=== PATIENT | female | born 1985 | race Two or more races ===

== ENCOUNTER 2024-12-02 19:00 | Emergency (ER) | payer BC, SELFPAY ==
[2024-12-02 19:37] VITALS: BP 107/66; PULSE 79; RESP 20; TEMP 36.7; O2SAT 97
--- NOTE | 2024-12-02 19:38 | XR_ITS ---
Examination: CT chest, without intravenous contrast. CT abdomen, without intravenous contrast. CT pelvis, without intravenous contrast. 2-D sagittal and coronal reconstructions. 3-D reconstructions. Date and time of exam:December 02, 2024, 2051 hrs. Indications: Onset chest pain epigastric pain abdominal pain Sharp intermittent epigastric pain one year CTDI vol (mgy) 6.68 DLP (MGycm)478 Technique: Multiple CT images, 3.0 mm slice thickness, obtained chest, abdomen, pelvis, with the high-resolution 64 slice scanner.. Sagittal and coronal 2-D reconstructions are obtained. 3-D reconstructions Low dose protocols were performed. One or more of the following dose reduction techniques were used; automated exposure control, adjustment of the mA and/or KV according to patient size, use of iterative reconstruction technique. Findings: No thoracic aortic aneurysmal dilatation Pulmonary artery segments are not enlarged. No paratracheal tracheobronchial or bronchopulmonary adenopathy. No pneumonia, pulmonary edema or pleural disease 19 mm upper right lobe liver cyst Gastric mucosa appears significantly thickened, axial image 124 No liver or splenic lesion No gallstones No pancreatic mass or dilated pancreatic duct Normal adrenal glands Bilateral 1 to 4 mm renal calculi No hydronephrosis or ureteral calculi Normal appendix No bowel obstruction or diverticulitis Minimal thickening urinary bladder wall 4 mm Old fracture fragment off the anterior inferior margin L5 Anteverted uterus with mildly enlarged fundus L5-S1 4 mm central lumbar disc bulge contiguous with the right and left S1 nerve roots Impression: No mediastinal lymphadenopathy No pneumonia, pulmonary edema or pleural disease Gastric mucosa is thickened, consider gastritis, clinical correlation advised, consider upper GI series or endoscopy follow-up Bilateral nonobstructing renal calculi, no hydronephrosis or ureteral calculi Normal appendix No bowel obstruction diverticulitis or free air. Minimal urinary bladder wall thickening, consider cystitis L4-L5 4 mm central lumbar disc bulge contiguous with the right and left S1 nerve roots
--- NOTE | 2024-12-02 19:39 | EKG_ITS ---
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
[2024-12-02 19:59] LABS: Basophils # (Auto) 0.1 Thou/mm3 (0.0-0.2); Basophils % (Auto) 1 % (0-2.5); Eosinophils # (Auto) 0.2 Thou/mm3 (0.0-0.5); Eosinophils % (Auto) 3 % (0-10); Hematocrit 30.2 % (36.0-46.0); Hemoglobin 9.1 g/dL (12.0-16.0); Immature Granulocytes Auto 0.02 Thou/mm3 (0.00-0.00); Lymphocytes # (Auto) 3.0 Thou/mm3 (1.0-4.8); Lymphocytes % (Auto) 39 % (10-50); Mean Corpuscular HGB Conc 30.1 g/dl (31.0-37.0); Mean Corpuscular Hemoglobin 21.8 pg (25.0-35.0); Mean Corpuscular Volume 72 fL (80-100); Monocytes # (Auto) 0.7 Thou/mm3 (0.0-0.8); Monocytes % (Auto) 9 % (0-12); Neutrophils # (Auto) 3.7 Thou/mm3 (1.8-7.7); Neutrophils % (Auto) 47 % (37-80); Nucleated Red Blood Cell # 0.00 Thou/mm3 (0.00-0.00); Nucleated Red Blood Cell % 0 /100 WBC (0); Platelet Count 314 Thou/mm3 (140-440); RDW Standard Deviation 44.9 fL (36.4-46.3); Red Blood Count 4.17 Miln/mm3 (4.00-5.20); White Blood Count 7.8 Thou/mm3 (3.6-11.0)
[2024-12-02 20:15] LABS: B-Type Natriuretic Peptide 31 pg/mL (0-100)
[2024-12-02 20:17] LABS: Alanine Aminotransferase 9 U/L (10-49); Albumin, Serum 4.6 gm/dL (3.5-5.0); Albumin/Globulin Ratio 1.7 (1.2-2.2); Alkaline Phosphatase 84 U/L (46-116); Anion Gap 10 (7-16); Aspartate Amino Transferase 19 U/L (0-34); BUN/Creatinine Ratio 15 Ratio (12-20); Bilirubin,Total 0.6 mg/dL (0.3-1.2); Blood Urea Nitrogen 9 mg/dL (9-23); Calcium 9.4 mg/dL (8.3-10.6); Calcium (Corrected) 9.4 mg/dL (8.5-10.1); Carbon Dioxide 21.9 mMol/L (20.0-31.0); Chloride 109 mMol/L (98-107); Creatinine (Component) 0.6 mg/dL (0.6-1.3); Globulin 2.7 gm/dL (2.3-3.5); Glucose 92 mg/dL (74-106); Osmolality,Calculated 279 (275-295); Potassium 3.6 mMol/L (3.4-5.1); Sodium 141 mMol/L (136-145); Total Protein 7.3 gm/dL (5.7-8.2); Troponin I < 0.020 ng/mL (0.0-0.045); eGFR > 60 See Note
[2024-12-02 20:25] LABS: Collection Type, Urine Clean Catch
[2024-12-02 20:38] LABS: HCG Qualitative,Urine Negative
[2024-12-02 20:42] LABS: Bacteria,Urine Rare; Bilirubin,Urine Negative (Negative); Blood,Urine Negative (Negative); Clarity,Urine Clear (Clear/Hazy); Color,Urine Lt-Yellow (Lt Yel-Yel); Glucose, Urine Negative (Negative); Ketones,Urine Negative (Negative); Leukocyte Esterase,Urine Negative (Negative); Nitrite,Urine Negative (Negative); PH,Urine 6.0 (5.0-7.0); Protein,Urine Negative (Neg - Trace); RBC,Urine 4 /hpf (0-3); Specific Gravity,Urine 1.021 (1.001-1.035); Squamous Epithelial Cell,Urine 1 /hpf (0-5); Urobilinogen,Urine Negative mg/dL (0.0-1.0); WBC,Urine 2 /hpf (0-5)
[2024-12-02 21:52] LABS: Amylase 114 U/L (30-118)
--- NOTE | 2024-12-02 22:14 | EDNOTE_ITS ---
ED Abdominal Pain RME/HPI General Chief Complaint: Abdominal Pain Stated complaint: EPIGASTRIC PAIN Time seen by provider: 12/02/24 19:06 Arrival date/time: 12/02/24 19:00 This is a case of 39-year-old female with no medical history came in in the emergency room due to abdominal pain mainly on the epigastric area radiating to her chest and lower back patient denies any shortness of breath denies any palpitation denies any numbness weakness tingling sensation or incontinence to urine or stool patient denies any nausea vomiting constipation no diarrhea or blood in stool persistence of the symptoms this patient decided to sought consult here in the emergency room Limitations: no limitations Related Data Previous Rx's ?Medication ?Instructions ?Recorded famotidine 20 mg tablet 20 mg PO BID #60 tabs hydrocodone 5 mg-acetaminophen 325 1 tab PO Q6H PRN pa in #12 tabs 12/02/24 mg tablet omeprazole 20 mg capsule,delayed 20 mg PO QDAY #30 cap s 12/02/24 release ondansetron HCl 4 mg tablet 4 mg PO Q8H PRN nausea and 12/02/24 vomiting #20 tabs Allergies Allergy/AdvReac Type Severity Reaction Status Date / Time NKA* Allergy Uncoded 12/02/24 19:02 Review of Systems Review of Systems Systems Reviewed: All systems reviewed, normal except as documented Constitutional Constitutional: Reports system reviewed and no additional complaints, except as documented and Reports as per HPI ENT Ears, Nose, Mouth, and Throat: Denies dysphagia and Denies odynophagia Cardiovascular Cardiovascular: Reports system reviewed and no additional complaints, except as documented, Reports chest pain, Denies dyspnea and Denies rapid heart rate Respiratory Respiratory: Reports system reviewed and no additional complaints, except as documented, Reports as per HPI and Denies dyspnea Gastrointestinal Gastrointestinal: Reports system reviewed and no additional complaints, except as documented, Reports as per HPI, Reports abdominal pain, Denies belching, Denies bloating, Denies change in bowel habits, Denies change in stool character, Denies coffee ground emesis, Denies constipation, Denies cramping, Denies diarrhea, Denies dyspepsia, Denies dysphagia, Denies early satiety, Denies excessive flatus, Denies fecal incontinence, Denies heartburn, Denies hematemesis, Denies hematochezia, Denies loose stools, Denies melena, Denies nausea, Denies odynophagia, Denies tenesmus and Denies vomiting Neurologic Neurologic: Reports system reviewed and no additional complaints, except as documented and Reports as per HPI Past Medical History Social History SMOKING STATUS: Never smoker ED Exam General Limitations: Present no limitations General appearance: Present alert, in no apparent distress and other (Is awake alert oriented not in distress nontoxic looking well-hydrated well-nourished) Head Head exam: Present atraumatic, normocephalic and normal inspection Eye Eye exam: Present normal appearance, PERRL and EOMI ENT ENT exam: Present normal exam, normal oropharynx and mucous membranes moist Neck Neck exam: Present normal inspection, full ROM and trachea midline Chest Chest inspection: Present normal inspection and symmetric chest wall rise; Absent tenderness Respiratory Respiratory exam: Present normal lung sounds bilaterally; Absent respiratory distress, wheezes, stridor, accessory muscle use or prolonged expiratory phase Cardiovascular Cardiovascular exam: Present regular rate, normal rhythm and normal heart sounds; Absent bradycardia, tachycardia, irregular rhythm, systolic murmur or diastolic murmur Abdominal Exam Abdominal exam: Present soft and normal bowel sounds; Absent distention, tenderness, guarding, rebound, rigidity, diminished bowel sounds, hyperactive bowel sounds, hypoactive bowel sounds, organomegaly, trauma, incision, psoas sign, obturator sign, heel tap sign, Dong's sign, Rovsing's sign, tenderness at McBurney's Point, ascites, pulsatile mass or hernia Extremities Exam Extremities exam: Present normal inspection and full ROM Back Exam Back exam: Present normal inspection and full ROM Neurological Exam Neurological exam: Present alert, oriented X3, CN II-XII intact, normal gait and reflexes normal; Absent motor sensory deficit Psychiatric Psychiatric exam: Present normal affect and normal mood Skin Skin exam: Present warm, dry, intact and normal color Course Quality Measures none Orders Category Date Time Status EKG (ED ONLY) *Do not use* NOW Care 12/02/24 19:[address] chest abdomen pelvis wo Stat Exams 12/02/24 19:38 Completed EKG (ED Only) Stat Exams 12/02/24 19:39 Draft Amylase Stat Lab 12/02/24 19:50 Completed BNP [B-Type Natriuretic Peptide] Stat Lab 12/02/24 19:50 Completed CBC Stat Lab 12/02/24 19:50 Completed Comprehensive Metabolic Panel Stat Lab 12/02/24 19:50 Completed HCG Qualitative,Urine Stat Lab 12/02/24 20:09 Completed Troponin I Stat Lab 12/02/24 19:50 Completed Urinalysis Stat Lab 12/02/24 20:09 Completed Famotidine [Pepcid] Med 12/02/24 22:08 Discontinued 40 mg PO X1 ONE HYDROcodone*/APAP 5/325 [Pritchett 5/325] Med 12/02/24 22:08 Discontinued 1 tab PO X1 ONE Lidocaine 2% Viscous [Xylocaine 2% Viscous] Med 12/02/24 22:08 Discontinued 15 ml PO X1 ONE Ondansetron Odt [Zofran Odt] Med 12/02/24 22:08 Discontinued 4 mg PO X1 ONE mg Hyd/Al Hyd/Gina Susp [Maalox Susp] Med 12/02/24 22:08 Discontinued 30 ml PO X1 ONE Vital Signs Vital signs: Vital Signs Temperature 98.0 F 12/02/24 19:37 Pulse Rate 79 12/02/24 19:37 Respiratory Rate 20 12/02/24 19:37 Blood Pressure 107/66 12/02/24 19:37 Pulse Oximetry (%) 97 12/02/24 19:37 Oxygen Delivery Method Room Air 12/02/24 19:37 Oxygen saturation is 97% in room air normal Abdominal Pain MDM MDM Narrative MDM Narrative:: This is a case of 39-year-old female with no medical history came in in the emergency room due to abdominal pain mainly on the epigastric area radiating to her chest and lower back patient denies any shortness of breath denies any palpitation denies any numbness weakness tingling sensation or incontinence to urine or stool patient denies any nausea vomiting constipation no diarrhea or blood in stool persistence of the symptoms this patient decided to sought consult here in the emergency room physical examination patient is awake alert oriented not in distress nontoxic looking vital signs stable BP stable nontachycardic nontachypneic nonhypoxic and afebrile lungs sound is clear no crackles no rales no retraction no stridor heart normal rate regular rhythm no murmur abdominal exam is benign nonsurgical no guarding no rebound no rigidity no tenderness back exam is also normal blood test showed no leukocytosis but with anemia of 9.1 patient is currently taking iron for anemia amylase is normal no electrolyte imbalance kidney and liver function is normal urinalysis is normal patient CT scan of chest abdomen pelvis showed bilateral nonobstructive renal calculi with gastric mucosal thickening suggestive of gastritis patient also have L4-L5 lumbar bulging disc EKG showed normal sinus rhythm at 79 negative troponin negative BNP at the time of exam the chest pain is not cardiac or pulmonary origin mainly patient is having gastritis or heartburn patient was given Pritchett for pain Zofran for vomiting GI cocktail after 30 minutes patient was reassessed patient condition markedly improved abdominal pain and chest pain was resolved patient will follow-up with PCP in 2 days for reevaluation and to be referred to 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 Patient verbalized no further complains explained diagnosis and answered patient question. Patient is comfortable with the proposed management plan including the need to follow up with his/her primary care physician and any specialist if applicable Discussed patient for any urgent condition or worsening sx, He/She needed to go to emergency room immediately or call 911. Patient acknowledge the responsibility to follow up as instructed and to monitor her/his symptoms. For any persistence of the symptoms for more than 3-5 days return precaution advised. Discussed the result of the test and was given printed discharge instruction Patient data External records reviewed:: [facility] previous records Clinical information provided by:: patient Social determinants that could affect healthcare access:: none Patient has the following chronic illnesses:: None How is presenting disease/condition affected by chronic disease/condition?: no chronic disease Evaluation data The following diagnostics were reviewed and interpreted by me:: lab results, radiology exam(s) and EKG tracing(s) Lab and/or radiology exams considered but not ordered:: Reviewed Interpretation Summary: Reviewed Medications / Prescriptions Medications or Prescriptions considered but not ordered:: Given Medication administrations:: Medication Administration History Discontinued Medications Hydrocodone Bitart/Acetaminophen (Hydrocodone/Apap 5/325 Tablet) 1 tab PO X1 ONE Stop: 12/02/24 22:09 Al Hydrox/Mg Hydrox/Simethicone (Mg Hyd/Al Hyd/Gina (Maalox Reg) Susp 30 Ml Udc) 30 ml PO X1 ONE Stop: 12/02/24 22:09 Famotidine (Famotidine 20 Mg Tablet) 40 mg PO X1 ONE Stop: 12/02/24 22:09 Lidocaine HCl (Lidocaine Viscous 2% 15 Ml Udc) 15 ml PO X1 ONE Stop: 12/02/24 22:09 Ondansetron HCl (Ondansetron Odt 4 Mg Tabrap) 4 mg PO X1 ONE; Protocol Stop: 12/02/24 22:09 Given Consultations Consultation(s) initiated? (list below): No Diagnosis Differential diagnosis abdominal pain: abdominal pain, acute appendicitis, calculus of kidney, diverticulitis, endometriosis, gastroenteritis, pancreatitis, small bowel obstruction and other (Gastritis) Most likely diagnosis given after review of the tests above:: Gastritis Admission Indicated Admission indicated?: not indicated Explain why admission is indicated or not indicated:: Not indicated Admission Request Was there a request for admission?: No Admission Attestation Admission request attestation: Not indicated Disposition Plan Disposition Plan: Discharge Discharge Attestation Discharge Attestation: The patient and all family members were given an opportunity to ask questions and understood the discharge instructions. Discharge instructions specifically effects, indications for sooner follow up or return to the emergency department, and the expected course of current diagnosis. Patient condition: Stable Discharge Plan Plan Patient Disposition: HOME (Self Care) Patient condition on transfer: Stable Prescriptions/Referrals Prescriptions/Med Rec: New ondansetron HCl 4 mg tablet 4 mg PO Q8H PRN (Reason: nausea and vomiting) Qty: 20 0RF hydrocodone-acetaminophen 5-325 mg tablet 1 tab PO Q6H MDD max 4 tabs per day PRN (Reason: pain) Qty: 12 0RF famotidine 20 mg tablet 20 mg PO BID Qty: 60 0RF omeprazole 20 mg capsule,delayed release(DR/EC) 20 mg PO QDAY Qty: 30 0RF Referrals: Rama Haddad MD [Primary Care Provider] - In 1 week Problem List Clinical Impression: Abdominal pain, Chest pain of unknown etiology, Gastritis, Nephrolithiasis, Bulging lumbar disc Patient/Caregiver Discharge Instructions Education Materials: Abdominal Pain, Kidney Stones Your Evaluation, Common Spine and Disk Problems, ED Chest Pain, Uncertain Cause, ED Gastritis (Adult) Additional Instructions: Follow-up with your primary care physician in 2 days for reevaluation and to be referred to supervisor cutting and sewing room for further evaluation and treatment of chest pain for possible echocardiogram stress test and Holter monitor he also need to be seen by the seat installer for your gastritis for possible EGD he also need to see a neurosurgeon for your bulging disks lumbar and pain management for poor control worsening symptoms or any emergent concern or recurrence of symptoms lyons ch as numbness weakness tingling sensation incontinence to urine or stool persistent abdominal pain and chest pain return to the emergency room immediately or call 911 take your medication as directed increase water intake keep hydrated Pedialyte Gatorade for hydration is advised avoid skipping of meals avoid fatty fried high cholesterol foods avoid spicy food avoid alcohol soda coffee is advised Print Language: Vincentian Stand Alone Forms: Shelby Award Info., Patient Portal Info Letter PA/CREDIT DIRECTOR Supervising Physician PA/CREDIT DIRECTOR Supervising Physician: Dr. Linda Owusu
[2024-12-02] MEDS: FAMOTIDINE 20 MG TABLET 40 MG PO (22:24)
[2024-12-02] MEDS: MG HYD/AL HYD/SIME (Maalox Reg) SUSP 30 ML UDC PO (22:24)
[2024-12-02] MEDS: HYDROcodone/APAP 5/325 TABLET 1 TAB PO (22:25)
[2024-12-02] MEDS: ONDANSETRON ODT 4 MG TABRAP PO (22:26)
== END 2024-12-02 23:28 | disposition home or self-care (01) ==
PROVIDERS: Nurse Practitioner Family; Emergency Provider Emergency Medicine; PCP Internal Medicine
DX: K29.70 Gastritis, unspecified, without bleeding (principal); R07.9 Chest pain, unspecified; N20.0 Calculus of kidney; M51.369 Other intervertebral disc degeneration, lumbar region without mention of lumbar back pain or lower extremity pain
CPT/HCPCS: 36415; 71250; 74176; 80053; 81001; 81025; 82150; 83880; 84484; 85025; 93005; 99284; Q0162; A9270

== ENCOUNTER → 2024-12-04 | Outpatient (CLI) | payer BC, SELFPAY ==
[2024-12-04 13:25] LABS: Iron 22 mcg/dL (50-170); Percent Iron Saturation 4 % (20-55); Total Iron Binding Capacity 457 mcg/dL (250-425); Unsaturated Iron Binding 435 (225-295)
== END | disposition home or self-care (01) ==
LOC: COPL 12:22
PROVIDERS: PCP Internal Medicine
DX: D64.9 Anemia, unspecified (principal); R10.13 Epigastric pain
CPT/HCPCS: 36415; 83540; 83550

== ENCOUNTER → 2025-02-28 | Outpatient (CLI) | payer BC, SELFPAY ==
--- NOTE | 2025-02-28 10:45 | XR_ITS ---
Examination: Abdomen sonogram, complete Date and time of exam: 02/28/2025 at 10:36 a.m. Comparison is made with the CT of the abdomen dated 12/02/2024 CLINICAL HISTORY: Right upper quadrant pain for 6 months Technique: Multiple real-time grayscale transabdominal sonographic images of the abdomen have been obtained. Findings: The size and configuration of the liver are normal. There is mild uniform increased echogenicity throughout the liver consistent with mild fatty infiltration. There is a 2.5 cm diameter fluid filled cyst with increased through transmission of sound seen posterosuperiorly in the liver. This is unchanged from the previous CT exam. The gallbladder is very well seen, the gallbladder wall appears normal, no stones nor any biliary sludge are identified. Common bile duct measures normal at 0.3 cm The head and body of the pancreas appear unremarkable. The directional color flow in the portal veins and hepatic veins is normal. Size and configuration of the aorta are normal. The AP and longitudinal dimensions of the right kidney are normal, its length is 10.2 cm cortical thickness 1.2 cm there is normal color flow vascularity throughout the right kidney. There is a single hyperechoic 5 mm diameter calculus seen in the ventral aspect of the mid right kidney. This is unchanged compared with the previous CT On the left kidney its longitudinal dimension is normal measuring 9 cm, the cortical thickness is normal measuring 2.2 cm there is normal color flow vascularity throughout the entire left kidney there is at least one small 5 mm echogenic density at the cortical medullary junction in the left lower kidney. This is most consistent with a tiny calculus I do note that there were a fairly large number of tiny calcified calculi in the lower third of the left kidney on the previous CT exam, only 1 of these is visible on today's ultrasound. Spleen size appears normal IMPRESSION: 1. The gallbladder appears entirely normal as does the common bile duct which measures 0.3 cm in diameter 2. There is diffuse mild fatty infiltration throughout the liver. 3. There is a single visible tiny echogenic seen at the corticomedullary junction of both right and left mid kidneys 4. The study is otherwise entirely normal
== END | disposition home or self-care (01) ==
DX: K76.0 Fatty (change of) liver, not elsewhere classified (principal)
CPT/HCPCS: 76700